=== PATIENT | male | born 1960 | race African-American/Black ===

== ENCOUNTER 2016-11-04 15:10 | Inpatient (IN) | payer MEDICARE, MEDICAID ==
[~2016-11-04] VITALS: Ht 188 cm; Wt 60.8 kg
[2016-11-04] MEDS ORDERED: SODIUM CHLORIDE 0.9% 1,000 ML IV ONE (15:30)
[2016-11-04 16:56] LABS: HEMATOCRIT. 33.5 % (42.0-52.0); HEMOGLOBIN. 10.7 g/dL (14.0-18.0); MEAN CORPUSCULAR HEMOGLOBIN 23.6 pg (28.0-32.0); MEAN CORPUSCULAR VOLUME 73.7 fL (80.0-94.0); PLATELET 143 x1000/uL (130-400); RED BLOOD CELL COUNT 4.55 mill/uL (4.7-6.1); RED CELL DISTRIBUTION WIDTH 14.2 % (11.6-14.6)
[2016-11-04 16:57] LABS: CHLORIDE 104 mEq/L (98-107)
[2016-11-04 16:59] LABS: PROTHROMBIN TIME 10.5 sec
[2016-11-04 17:04] LABS: CARBON DIOXIDE 29 mEq/L (21-32)
[2016-11-04 17:07] LABS: TROPONIN I < 0.02 ng/mL (0.00-0.04)
[2016-11-04] MEDS ORDERED: ASPIRIN 325MG EC TABLET PO ONE (17:30)
[2016-11-04] MEDS ORDERED: DEXTROSE 50% WATER 50ML SYRINGE IV ONE ×2 (17:40→17:45)
[2016-11-04 18:11] LABS: PLATELET ESTIMATE NORMAL
[2016-11-04] MEDS ORDERED: CLONIDINE 0.1MG TABLET PO ONE (21:00)
[2016-11-04 21:39] LABS: CLARITY URINE CLEAR (CLEAR); COLOR URINE YELLOW (YELLOW); GLUCOSE URINE TRACE (NEGATIVE); KETONES URINE NEGATIVE (NEGATIVE); LEUKOCYTE ESTERASE URINE NEGATIVE (NEGATIVE); NITRITE URINE NEGATIVE (NEGATIVE); OCCULT BLOOD URINE TRACE (NEGATIVE); PH URINE 7.5 (4.5-8.0); PROTEIN URINE 2+ (NEGATIVE); SPECIFIC GRAVITY URINE 1.009 (1.005-1.030); UROBILINOGEN URINE 0.2 E.U./dL (0.2-1.0)
[2016-11-04 22:08] VITALS: BP 197/93
[2016-11-04] MEDS ORDERED: CLONIDINE 0.1MG TABLET PO PRN (23:15)
[2016-11-04] MEDS: AMLODIPINE 10MG TABLET PO SCH (23:44)
[2016-11-05] VITALS: BP 143/88
[2016-11-05 04:00] VITALS: BP 126/77
[2016-11-05] MEDS: BLOOD SUGAR DIAGNOSTIC STRIP TEST SCH ×4 (05:58→17:31)
[2016-11-05 06:30] LABS: CARBON DIOXIDE 30 mEq/L (21-32); CHLORIDE 105 mEq/L (98-107)
[2016-11-05 07:20] LABS: BASOPHILS % 0.4 % (0.0-2.0); EOSINOPHILS % 0.7 % (0.0-5.0); HEMOGLOBIN. 9.8 g/dL (14.0-18.0); LYMPHOCYTES % 21.2 % (20.0-50.0); MEAN CORPUSCULAR HEMOGLOBIN 23.5 pg (28.0-32.0); MEAN CORPUSCULAR VOLUME 73.9 fL (80.0-94.0); MEAN PLATELET VOLUME 9.2 fl (7.4-10.4); MONOCYTES % 9.3 % (2.0-8.0); NEUTROPHILS % 68.4 % (40.0-76.0); PLATELET 150 x1000/uL (130-400); RED BLOOD CELL COUNT 4.19 mill/uL (4.7-6.1); RED CELL DISTRIBUTION WIDTH 13.9 % (11.6-14.6)
[2016-11-05 08:00] VITALS: BP 123/74
[2016-11-05] MEDS: AMLODIPINE 10MG TABLET PO SCH (09:03)
[2016-11-05] MEDS ORDERED: GABA-529 PO (09:46)
[2016-11-05] MEDS ORDERED: ATOR-2 PO (09:53)
[2016-11-05] MEDS ORDERED: HYDR25TA PO (09:53)
[2016-11-05] MEDS ORDERED: SERT-112 PO (09:53)
[2016-11-05] MEDS ORDERED: DILT240C92 PO (09:53)
[2016-11-05] MEDS ORDERED: EZET10TA PO (09:53)
[2016-11-05] MEDS ORDERED: METF500T4 PO (09:53)
[2016-11-05] MEDS ORDERED: ASPI-867 PO (09:53)
[2016-11-05] MEDS ORDERED: GLIM4TAB2 PO (09:53)
[2016-11-05] MEDS ORDERED: TAMS0.4C31 PO (09:53)
[2016-11-05] MEDS ORDERED: INDA2.5T5 PO (09:53)
[2016-11-05] MEDS ORDERED: CLOP75TA33 PO (09:53)
[2016-11-05 11:59] VITALS: BP 116/79
[2016-11-05 16:00] VITALS: BP 133/76
[2016-11-05 20:00] VITALS: BP 115/67
[2016-11-05 20:41] LABS: *AMPHETAMINES SCREEN URINE NEGATIVE (NEGATIVE); *BARBITURATES SCREEN URINE NEGATIVE (NEGATIVE); *BENZODIAZEPINES SCREEN URINE NEGATIVE (NEGATIVE); *COCAINE SCREEN URINE NEGATIVE (NEGATIVE); CANNABINOID URINE SCREEN NEGATIVE (NEGATIVE); METHADONE URINE SCREEN NEGATIVE (NEGATIVE); OPIATES URINE SCREEN NEGATIVE (NEGATIVE); PHENCYCLIDINE URINE SCREEN NEGATIVE (NEGATIVE)
[2016-11-06] VITALS: BP 142/81
[2016-11-06 04:00] VITALS: BP_SYST 118; BP_SYST 154; BP_DIAS 69; BP_DIAS 94
[2016-11-06] MEDS: BLOOD SUGAR DIAGNOSTIC STRIP TEST SCH ×3 (06:17→11:50)
[2016-11-06] MEDS: AMLODIPINE 10MG TABLET PO SCH (07:55)
[2016-11-06 12:00] VITALS: BP 122/73
[2016-11-06] MEDS ORDERED: DEXTROSE 50% WATER 50ML SYRINGE IV PRN (12:00)
[2016-11-06] MEDS ORDERED: INSULIN LISPRO 100 UNITS/ML SUBCUT SCH (12:15)
[2016-11-06 13:37] VITALS: BP 122/73
[2016-11-06] MEDS ORDERED: BLOOD SUGAR DIAGNOSTIC STRIP TEST SCH (16:45)
== END 2016-11-06 14:51 | disposition home or self-care (01) | DRG 637 ==
LOC: ER 15:20 → EDSEX 15:20 → 5WST 18:17 → EDBD 18:17 → EDBEDREQ 18:18 → ENRESERV 18:23
PROVIDERS: ADMIT Family Medicine; ATTEND Family Medicine
DX: E11.649 Type 2 diabetes mellitus with hypoglycemia without coma (principal); G93.41 Metabolic encephalopathy; Z86.73 Personal history of transient ischemic attack (TIA), and cerebral infarction without residual deficits
CPT/HCPCS: 36415; 70450; 71010; 80048; 80053; 80305; 81001; 82962; 84484; 85025; 85610; 85730; 87086; 93005; 96374; 99285; J1815; J7030